=== PATIENT | male | born 1980 | race Caucasian/White ===

== ENCOUNTER → 2023-06-01 08:15 | Outpatient (REF) | payer BC, SELFPAY | LOC: CLAB 08:15 | PROVIDERS: ATTENDING PHYSICIAN Otolaryngology | DX: R09.81 Nasal congestion (principal); J34.2 Deviated nasal septum; R09.82 Postnasal drip; J30.89 Other allergic rhinitis; G47.33 Obstructive sleep apnea (adult) (pediatric); R04.0 Epistaxis; J32.4 Chronic pansinusitis | CPT/HCPCS: 88304; 88311 ==

== ENCOUNTER → 2024-07-09 14:49 | Outpatient (REF) | payer OTHER, SELFPAY | LOC: HWRCS 14:49 | PROVIDERS: ATTENDING PHYSICIAN Internal Medicine | DX: R00.0 Tachycardia, unspecified (principal); R03.0 Elevated blood-pressure reading, without diagnosis of hypertension; Z82.49 Family history of ischemic heart disease and other diseases of the circulatory system | CPT/HCPCS: 93306 ==